=== PATIENT | female | born 1940 | race Caucasian/White ===

== ENCOUNTER 2024-03-11 03:51 | Emergency (ER) | payer MEDICARE, OTHER ==
[~2024-03-11] VITALS: Ht 167.6 cm; Wt 55.5 kg
[2024-03-11] MEDS: oxyCODONE/APAP 5-325mg tablet PO ONE (05:05)
[2024-03-11] MEDS: ketorolac trometh 15mg/ml vial 15 MG/ML ML IM ONE (05:33)
[2024-03-11] MEDS: TETanus/Pertussis (Acell)/Diphther VAC/PF (Tdap-Adult) 0.5ml syringe IMVAC ONE (05:35)
[2024-03-11] MEDS: bacitracin 15gm ointment TP ONE (05:35)
[2024-03-11] MEDS: LIDOCAINE 1%/EPI 1:100,000 inj. 10 ML multi-dose vial IJ ONE (05:35)
[2024-03-11] MEDS: diphenhydrAMINE 50 mg/ml inj IV ONE (05:57)
[2024-03-11] MEDS: ondansetron/PF 4mg/2ml inj IV ONE (06:03)
[2024-03-11] MEDS: famotidine/PF 10 mg/ml inj IV ONE (06:21)
[2024-03-11 07:18] LABS: BASOPHILS % (AUTO) 0.5 % (0-1); EOSINOPHILS # (AUTO) 0.2 X10'3 (0-0.9); EOSINOPHILS % (AUTO) 2.9 % (0-6); HEMATOCRIT 40.5 % (35.0-45.0); HEMOGLOBIN 13.3 g/dl (12.0-16.0); LYMPHOCYTES # (AUTO) 1.1 X10'3 (1.1-4.8); LYMPHOCYTES % (AUTO) 14.6 % (21-51); MEAN CORPUSCULAR HEMOGLOBIN 31.8 PG (27.0-31.0); MEAN CORPUSCULAR HGB CONC 32.8 g/dL (33.0-36.5); MEAN CORPUSCULAR VOLUME 96.7 FL (78-98); MEAN PLATELET VOLUME 7.9 FL (7.4-10.4); MONOCYTES # (AUTO) 0.4 X10'3 (0-0.9); MONOCYTES % (AUTO) 5.5 % (2-12); NEUTROPHILS # (AUTO) 5.7 X10'3 (1.8-7.7); NEUTROPHILS % (AUTO) 76.5 % (42-75); PLATELET COUNT 221 X10'3 (140-440); RED BLOOD COUNT 4.19 X10'6 (4.20-5.60); WHITE BLOOD COUNT 7.4 X10'3 (4.5-11.0)
[2024-03-11 07:38] LABS: ALBUMIN 3.4 G/DL (3.4-5.0); ANION GAP 6 (8-16); BLOOD UREA NITROGEN 14 MG/DL (7-18); BUN/CREATININE RATIO 16.3 (10.0-20.0); CALCIUM 8.6 MG/DL (8.5-10.1); CHLORIDE 107 MMOL/L (99-107); CREATININE 0.86 MG/DL (0.40-0.90); GLUCOSE 143 MG/DL (70-104); POTASSIUM 3.5 MMOL/L (3.5-5.1); SODIUM 141 MMOL/L (135-145); TOTAL CARBON DIOXIDE 27.6 MMOL/L (24-32); eCRCL 44 ML/MIN; eGFR 63 ML/MIN
[2024-03-11 08:23] VITALS: BP 144/78; PULSE 67; RESP 18; TEMP 98.1; O2SAT 97
== END 2024-03-11 08:25 | disposition home or self-care (01) ==
LOC: ER 03:52
DX: S01.01XA Laceration without foreign body of scalp, initial encounter (principal); S09.8XXA Other specified injuries of head, initial encounter; I49.8 Other specified cardiac arrhythmias; Z88.3 Allergy status to other anti-infective agents; W01.190A Fall on same level from slipping, tripping and stumbling with subsequent striking against furniture, initial encounter; Y93.89 Activity, other specified; Y92.89 Other specified places as the place of occurrence of the external cause; Y99.8 Other external cause status
CPT/HCPCS: 12002; 36415; 70450; 71045; 80048; 84484; 85025; 90715; 93005; 96372; 96374; 96375; 99285; A6402; A6446; G0008; J1200; J1885; J2405; J3490; J7030; 90471; A6449

== ENCOUNTER 2024-04-18 11:01 | Emergency (ER) | payer MEDICARE, OTHER ==
[~2024-04-18] VITALS: Ht 167.6 cm; Wt 54.5 kg
[2024-04-18 11:07] VITALS: TEMP 97.8
[2024-04-18] MEDS ORDERED: dexamethasone 4mg/ml inj IV SCH (12:55)
[2024-04-18] MEDS ORDERED: ketorolac trometh 15mg/ml vial 15 MG/ML ML IV ONE (12:55)
[2024-04-18] MEDS: normal saline 1000ML IV soln IVB ONE (13:35)
[2024-04-18] MEDS: diphenhydrAMINE 50 mg/ml inj IV ONE ×2 (13:54→14:18)
[2024-04-18] MEDS: proCHLORperazine 10 MG/2 ml inj IV ONE (13:54)
[2024-04-18] MEDS: dexamethasone 4mg/ml inj IV ONE (13:54)
[2024-04-18] MEDS: morphine 2 MG/ML inj. syringe IV ONE ×2 (14:17→15:09)
[2024-04-18] MEDS ORDERED: RIME75TA PO (15:09)
[2024-04-18 15:17] VITALS: BP 138/74; PULSE 84; RESP 16; O2SAT 95
== END 2024-04-18 15:56 | disposition home or self-care (01) ==
LOC: ER 11:02
DX: G43.909 Migraine, unspecified, not intractable, without status migrainosus (principal); Z88.3 Allergy status to other anti-infective agents; Z88.6 Allergy status to analgesic agent
CPT/HCPCS: 96361; 96374; 96375; 96376; 99284; J0780; J1100; J1200; J2270; J7030